=== PATIENT | male | born 1980 | race African-American/Black ===

== ENCOUNTER 2023-03-27 16:09 | Outpatient (REF) | payer MEDICAID, SELFPAY ==
[2023-03-27 18:20] LABS: Anion Gap 16 (12-20); Blood Urea Nitrogen 15 mg/dL (9-16); Calcium 9.6 mg/dL (8.4-10.2); Carbon Dioxide 25 mmol/L (22-29); Chloride 105 mmol/L (96-108); Cholesterol 234 mg/dL; Estimated Glomerular Filt Rate 48; Glucose Random 73 mg/dL (60-115); HDL Cholesterol 79 mg/dL; LDL Cholesterol Calculated 126 mg/dl; Potassium 4.6 mmol/L (3.3-5.1); Sodium 141 mmol/L (135-145); Triglycerides 146 mg/dL
[2023-03-27 18:37] LABS: Thyroid Stimulating Hormone 30.01 uIU/mL (0.32-4.0)
== END 2023-03-27 16:10 | disposition home or self-care (01) ==
LOC: HO.HHCL 16:09
PROVIDERS: Visit Provider Registered Nurse
DX: Z13.89 Encounter for screening for other disorder (principal)
CPT/HCPCS: 36415; 80048; 80061; 84443

== ENCOUNTER 2023-04-24 16:16 | Emergency (ER) | payer MEDICAID, SELFPAY ==
--- NOTE | 2023-04-24 | ECG_ITS ---
Test Reason : Dizziness Blood Pressure : / mmHG Vent. Rate : 103 BPM Atrial Rate : 103 BPM P-R Int : 180 ms QRS Dur : 092 ms QT Int : 350 ms P-R-T Axes : 056 123 039 degrees QTc Int : 458 ms Sinus tachycardia Right axis deviation Abnormal ECG When compared with ECG of 09-SEP-2005 17:37, Vent. rate has increased BY [address] no longer elevated in Anterior leads QT has lengthened Referred By: Generic ED Physician Electronically Signed By:ANCELMO BAILEY
[2023-04-24 16:20] VITALS: BP 135/96; BP 154/104; PULSE 106; PULSE 115; RESP 18; TEMP 36.7; O2SAT 97; O2SAT 99; BMI 26.8
--- NOTE | 2023-04-24 17:56 | ED_ITS ---
HPI - General Adult General Chief complaint: Dizziness Stated complaint: DIZZY,HAS NOT TAKEN BP MEDS PER EMS Time Seen by Provider: 04/24/23 16:51 Source: patient Mode of arrival: ambulatory Limitations: no limitations History of Present Illness HPI narrative: Palpitation, agitation, anxious all day. Just feeling a bad day. Patient states the palpitation lasted minutes. Onset (ago): minute(s) Related Data Allergies Allergy/AdvReac Type Severity Reaction Status Date / Time raisins Allergy Hives Uncoded 04/24/23 16:29 Review of Systems Review of Systems: Yes all other systems are reviewed and are negative [facility] Social History Social History Advance Directives: No Advance Directives Information Provided: Yes Physical Exam ED Vital Signs: Vital Signs - 24 hr 04/24/23 16:20 04/24/23 18:40 Temperature 98.1 F Pulse Rate 106 H 104 H Respiratory Rate 18 17 Blood Pressure 135/96 H 153/110 H Pulse Oximetry 99 100 Oxygen Delivery Method Room Air Room Air BMI result Body Mass Index 26.8 Const General: healthy appearing Nutritional Appearance: average body habitus Orientation/consciousness: oriented to person and patient oriented x3 Limitations: no limitations HENMT Head: Yes normal to inspection Ears: external ears normal General nose exam: Normal external nose present Mouth: Normal oral and palatal mucosa present and oropharynx normal Throat: Yes posterior oropharynx normal Eyes General: appearance normal, both eyes and all related structures Neck Neck: Yes normal visual inspection Chest Chest palpation & inspection: normal inspection of the chest Resp Auscultation: clear to auscultation bilaterally Cardio Other: slight tachycardia Jugular venous distension: no JVD Rate: regular rate Rhythm: regular rhythm Heart sounds: S1 normal heart sound present and S2 normal heart sound present GI Inspection: Yes normal to inspection Palpation (GI): Soft to palpation, nontender and No hepatosplenomegaly present Auscultation: normal bowel sounds General: Yes no CVA tenderness Back/Spine/Pelvis Back: no CVA tenderness Skin General skin exam: no rashes or lesions noted Neuro General: oriented to person and patient oriented x3 Cranial nerves: Yes CN's II-XII intact bilaterally Motor exam (neuro): 5/5 motor strength present throughout Extrem General: Yes normal to inspection Psych Appearance: grossly normal Course Reevaluation(s) Reevaluation #1: no evidence of cardiac arrythmia will dc home Time: 19:28 Medical Decision Making Differential Diagnosis Differential Diagnoses: The differential diagnosis associated with the presentation includes (tachycardia, hyper thyroidism, arrhythmia, cad) Admission/Observation Consideration of admission/observation: Escalation of care including admission/observation considered (upon arrival patient considered for admission) Lab Data MDM Lab Attestation statement: I reviewed the patient's lab results. (normal electrolytes, normal troponin) 04/24/23 18:09 04/24/23 18:09 Labs: Lab Results 04/24/23 04/24/23 04/24/23 Range/Units 18:09 18:09 18:09 WBC 5.6 (4.8-10.8) X10*3/uL RBC 4.60 (4.60-5.80) X10*6/uL Hgb 15.0 (14.0-18.0) g/dl Hct 45.1 (42.0-52.0) % MCV 98.0 (80.0-98.0) fL MCH 32.6 (27.0-33.0) pg MCHC 33.3 (31.0-36.0) g/dl RDW 14.0 (11.0-16.0) % Plt Count 246 (160-400) X10*3/uL MPV 8.7 L (9.4-12.4) fL Immature Gran % (Auto) 0.2 (0.0-0.4) % Neut % (Auto) 54.9 (45-73) % Lymph % (Auto) 31.5 (20-40) % Lander % (Auto) 10.0 (2-11) % Eos % (Auto) 2.7 (0-4) % Baso % (Auto) 0.7 (0-2) % Lymph # (Auto) 1.8 (1.2-4.9) X10*3/uL Lander # (Auto) 0.6 (0.1-1.2) X10*3/uL Eos # (Auto) 0.2 (0.0-0.4) X10*3/uL Baso # (Auto) 0.0 (0.0-0.2) X10*3/uL Abs Immat Gran (auto) 0.01 (0.00-0.03) X10*3/uL Absolute Neuts (auto) 3.1 (2.0-8.3) x10*3/uL Absolute Nucleated RBC 0.000 (0.0-0.012) X10*3/uL Nucleated RBC % (auto) 0.0 (0.0-0.2) /100WBC APTT 29.6 (26.0-36.4) SEC Sodium 139 (135-145) mmol/L Potassium 4.2 (3.3-5.1) mmol/L Chloride 106 (96-108) mmol/L Carbon Dioxide 26 (22-29) mmol/L Anion Gap 11 L (12-20) BUN 15 (9-16) mg/dL Creatinine 1.21 (0.5-1.4) mg/dL Estim Creat Clear Calc 97.1 Estimated GFR > 60 Random Glucose 94 (60-115) mg/dL Calcium 9.7 (8.4-10.2) mg/dL Total Bilirubin 0.5 (0.0-1.0) mg/dL Direct Bilirubin 0.2 (0.0-0.5) mg/dL AST 26 (5-37) U/L ALT 25 (0-40) U/L Alkaline Phosphatase 60 (39-117) U/L Troponin I High Sens (<3.5-35.0) ng/L Total Protein 7.6 (6.5-8.0) g/dL Albumin 4.4 (3.5-5.0) g/dL Lipase 27 (8-78) U/L TSH (0.32-4.0) uIU/mL Ethyl Alcohol < 10 mg/dL 04/24/23 04/24/23 Range/Units 18:09 18:09 WBC (4.8-10.8) X10*3/uL RBC (4.60-5.80) X10*6/uL Hgb (14.0-18.0) g/dl Hct (42.0-52.0) % MCV (80.0-98.0) fL MCH (27.0-33.0) pg MCHC (31.0-36.0) g/dl RDW (11.0-16.0) % Plt Count (160-400) X10*3/uL MPV (9.4-12.4) fL Immature Gran % (Auto) (0.0-0.4) % Neut % (Auto) (45-73) % Lymph % (Auto) (20-40) % Lander % (Auto) (2-11) % Eos % (Auto) (0-4) % Baso % (Auto) (0-2) % Lymph # (Auto) (1.2-4.9) X10*3/uL Lander # (Auto) (0.1-1.2) X10*3/uL Eos # (Auto) (0.0-0.4) X10*3/uL Baso # (Auto) (0.0-0.2) X10*3/uL Abs Immat Gran (auto) (0.00-0.03) X10*3/uL Absolute Neuts (auto) (2.0-8.3) x10*3/uL Absolute Nucleated RBC (0.0-0.012) X10*3/uL Nucleated RBC % (auto) (0.0-0.2) /100WBC APTT (26.0-36.4) SEC Sodium (135-145) mmol/L Potassium (3.3-5.1) mmol/L Chloride (96-108) mmol/L Carbon Dioxide (22-29) mmol/L Anion Gap (12-20) BUN (9-16) mg/dL Creatinine (0.5-1.4) mg/dL Estim Creat Clear Calc Estimated GFR Random Glucose (60-115) mg/dL Calcium (8.4-10.2) mg/dL Total Bilirubin (0.0-1.0) mg/dL Direct Bilirubin (0.0-0.5) mg/dL AST (5-37) U/L ALT (0-40) U/L Alkaline Phosphatase (39-117) U/L Troponin I High Sens 3.2 (<3.5-35.0) ng/L Total Protein (6.5-8.0) g/dL Albumin (3.5-5.0) g/dL Lipase (8-78) U/L TSH 8.78 H (0.32-4.0) uIU/mL Ethyl Alcohol mg/dL Independent Interpretation I performed an independent interpretation of an: EKG (sinus tachycardia rate 100, no st or twave changes) Independent Historian Clinical information obtained from an independent historian. History obtained from or confirmed by: EMS Chronic Conditions Patient?s care impacted by: Other (hypothyroidism) Discharge Plan Discharge Clinical Impression: Heart palpitations, Tachycardia Patient Disposition: Home, Self-Care Instructions: Heart Palpitations (ED), Atrial Tachycardia (ED) Referrals: [place] [Primary Care Provider] - 5 days
[2023-04-24 18:13] LABS: MANUAL DIFF FLAG NO
[2023-04-24 18:22] LABS: Partial Thromboplastin Time 29.6 SEC (26.0-36.4)
[2023-04-24 18:23] LABS: Basophils Percent Auto 0.7 % (0-2); Eosinophils Absolute Auto 0.2 X10*3/uL (0.0-0.4); Eosinophils Percent Auto 2.7 % (0-4); Hematocrit 45.1 % (42.0-52.0); Imm Gran Abs Auto 0.01 X10*3/uL (0.00-0.03); Imm Gran Pct Auto 0.2 % (0.0-0.4); Lymphocytes Absolute Auto 1.8 X10*3/uL (1.2-4.9); Lymphocytes Percent Auto 31.5 % (20-40); Mean Corpuscular HGB Conc 33.3 g/dl (31.0-36.0); Mean Corpuscular Hemoglobin 32.6 pg (27.0-33.0); Mean Platelet Volume 8.7 fL (9.4-12.4); Monocytes Absolute Auto 0.6 X10*3/uL (0.1-1.2); Neutrophils Absolute Auto 3.1 x10*3/uL (2.0-8.3); Neutrophils Percent Auto 54.9 % (45-73); Platelet Count 246 X10*3/uL (160-400); White Blood Count 5.6 X10*3/uL (4.8-10.8)
[2023-04-24 18:40] VITALS: BP 153/110; PULSE 104; RESP 17; O2SAT 100
[2023-04-24 18:46] LABS: Alanine Aminotransferase 25 U/L (0-40); Albumin Level 4.4 g/dL (3.5-5.0); Alkaline Phosphatase 60 U/L (39-117); Anion Gap 11 (12-20); Aspartate Amino Transferase 26 U/L (5-37); Bilirubin Direct 0.2 mg/dL (0.0-0.5); Bilirubin Total 0.5 mg/dL (0.0-1.0); Blood Urea Nitrogen 15 mg/dL (9-16); Calcium 9.7 mg/dL (8.4-10.2); Carbon Dioxide 26 mmol/L (22-29); Chloride 106 mmol/L (96-108); Creatinine Clr Calc Pharmacy 97.1; Estimated Glomerular Filt Rate > 60; Ethanol < 10 mg/dL; Glucose Random 94 mg/dL (60-115); Lipase 27 U/L (8-78); Potassium 4.2 mmol/L (3.3-5.1); Sodium 139 mmol/L (135-145); Total Protein 7.6 g/dL (6.5-8.0)
[2023-04-24 18:52] LABS: Troponin-I High Sensitivity 3.2 ng/L (<3.5-35.0)
[2023-04-24 19:06] LABS: TSH reflex Free T4 8.78 uIU/mL (0.32-4.0)
[2023-04-24 19:45] LABS: Free T4 (Free Thyroxine) 0.77 ng/dL (0.71-1.85)
== END 2023-04-24 19:49 | disposition home or self-care (01) ==
PROVIDERS: Emergency Provider Emergency Medicine
DX: R42 Dizziness and giddiness (principal); R00.0 Tachycardia, unspecified; R00.2 Palpitations; Z79.899 Other long term (current) drug therapy
CPT/HCPCS: 36415; 80048; 80076; 80307; 83690; 84439; 84443; 84484; 85025; 85730; 93005; 99283; 99284

== ENCOUNTER 2023-07-02 11:13 | Outpatient (REF) | payer MEDICAID, SELFPAY ==
[2023-07-02 14:01] LABS: Thyroid Stimulating Hormone 25.57 uIU/mL (0.32-4.0)
== END 2023-07-02 11:14 | disposition home or self-care (01) ==
LOC: HO.HHCL 11:13
PROVIDERS: Visit Provider Registered Nurse
DX: E03.9 Hypothyroidism, unspecified (principal)
CPT/HCPCS: 36415; 84443

== ENCOUNTER 2023-07-28 15:34 | Emergency (ER) | payer MEDICAID, SELFPAY ==
[2023-07-28 15:56] VITALS: BP 156/112; PULSE 99; RESP 18; TEMP 36.6; O2SAT 100; BMI 28.0
--- NOTE | 2023-07-28 15:56 | ED_ITS ---
HPI - URI/Sore Throat General Chief Complaint: Upper Respiratory Symptoms Stated Complaint: nasal congestion, dryness, redness Time Seen by Provider: 07/28/23 15:58 Source: patient Mode of arrival: ambulatory Limitations: no limitations History of Present Illness HPI Narrative: Patient is a 43-year-old male who presents emergency department for evaluation of nasal congestion and skin irritation to the nose. Reports symptoms x1 week, frequently wanting the nose. Reports scabbing/dryness of the skin that he is frequently feeling full and then it is scabbing back over. Has discomfort to this area with redness, occasionally has small amount of thin yellow drainage. Pain over the bilateral cheek bones. Denies headache, neck pain, dizziness, lightheadedness, cough, sore throat, shortness of breath. Related Data Previous Rx's Medication Instructions Recorded amoxicillin 875 mg-potassium 1 tab PO Q12H #14 tabs 07/28/23 clavulanate 125 mg tablet mupirocin 2 % topical ointment 1 appl topical BID #15 grams 07/28/23 Allergies Allergy/AdvReac Type Severity Reaction Status Date / Time raisins Allergy Hives Uncoded 07/28/23 15:56 Review of Systems Review of Systems: Yes all other systems are reviewed and are negative PMFSH Past Medical History Attestation statement: The following information was validated with the patient. Source: old records reviewed Social History Social History Alcohol intake: current Alcohol intake frequency: 0-2 drinks per day Alcohol type: beer and hard liquor Physical Exam Vital Signs: Vital Signs: Last Vital Signs Temp 97.8 F 07/28/23 15:56 Pulse 99 07/28/23 15:56 Resp 18 07/28/23 15:56 BP 156/112 H 07/28/23 15:56 Pulse Ox 100 07/28/23 15:56 O2 Del Method Room Air 07/28/23 15:56 BMI result Body Mass Index 28.0 Appearance: Alert.?Oriented to person, place and time. No acute distress.?Normal affect. Eyes: Pupils equal, round and reactive to light.? ENT: TM normal bilaterally. Pharynx normal.? Nares patent bilaterally. No septal hematoma. Tip of the nose with mild excoriation of the skin. Bilateral maxillary tenderness upon palpation ? Neck: Normal inspection.? Neck supple.??No cervical adenopathy CVS: Heart sounds normal. Normal heart rate and rhythm.? Pulses normal.?? Respiratory: No respiratory distress.? Lung sounds clear to auscultation bilaterally?? Abdomen: Soft and non-tender. Normoactive bowel sounds. Skin: Skin warm and dry.? Normal skin color.? ? Extremities: No lower extremity edema.? Neuro: Moves all extremities spontaneously. Sensation intact bilaterally. No motor deficits. Ambulates with normal steady gait. Medical Decision Making Medical Decision Making [facility] Narrative: Patient is a 43-year-old male presenting for evaluation of nasal congestion and sinus tenderness. Declines viral testing; COVID-19/influenza/RSV. Overall he is well-appearing At this time history and physical exam not consistent with ACS/PE/pneumonia. Mild excoriation of the skin at the tip of the nose, does not appear to be acute cellulitis, no abscess, currently no crusting or dried skin to suggest impetigo based on reported history will send prescription for mupirocin to the pharmacy in addition to Augmentin to cover sinusitis. Overall he is Well-appearing, nontoxic, afebrile, no tachycardia or tachypnea/hypoxia. 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 Currently he is asymptomatic, and denies any known history of hypertension. Upon re-evaluation to be 148/96. Speaking clear full sentences, ambulatory with steady gait. Discussed conservative treatment including rest, hydration, Tylenol/ibuprofen as needed for fever and body aches, saline nasal spray, humidifier, Advised to follow-up with primary care provider as needed, discussed reasons to return back to the emergency department. All questions were answered. Patient discharged home in stable condition. Differential Diagnosis Differential Diagnoses: The differential diagnosis associated with the presentation includes (As noted above) External Record Review External record reviewed: Outpatient record Tests considered The following testing was considered but not selected: As noted above Prescription Management I considered prescription management with: Antibiotic Discharge Plan Discharge Clinical Impression: Sinusitis Qualifiers: Sinusitis location: maxillary Chronicity: acute Recurrence: non-recurrent Qualified Code(s): J01.00 - Acute maxillary sinusitis, unspecified Patient Disposition: Home, Self-Care Instructions: Sinusitis (ED) Prescriptions: New amoxicillin-pot clavulanate 875-125 mg tablet 1 tab PO Q12H Qty: 14 0RF mupirocin 2 % ointment 1 appl topical BID Qty: 15 0RF Referrals: Vanessa Lawson, [employer] [Primary Care Provider] -
[2023-07-28 16:00] VITALS: BP 142/103
== END 2023-07-28 16:55 | disposition home or self-care (01) ==
PROVIDERS: Emergency Provider Emergency Medicine; PCP Registered Nurse
DX: J01.00 Acute maxillary sinusitis, unspecified (principal)
CPT/HCPCS: 99282; 99283

== ENCOUNTER 2023-10-16 08:37 | Outpatient (REF) | payer MEDICAID, SELFPAY ==
[2023-10-16 12:16] LABS: Anion Gap 11 (12-20); Blood Urea Nitrogen 25 mg/dL (9-16); Calcium 9.6 mg/dL (8.4-10.2); Carbon Dioxide 25 mmol/L (22-29); Chloride 108 mmol/L (96-108); Cholesterol 158 mg/dL (<200); Estimated Glomerular Filt Rate > 60; Glucose Random 110 mg/dL (60-115); HDL Cholesterol 47 mg/dL (>40); LDL Cholesterol Calculated 97 mg/dL (<100); Potassium 5.1 mmol/L (3.3-5.1); Sodium 139 mmol/L (135-145); Triglycerides 71 mg/dL (<150)
[2023-10-16 12:26] LABS: Thyroid Stimulating Hormone 15.65 uIU/mL (0.32-4.0)
== END 2023-10-16 08:38 | disposition home or self-care (01) ==
LOC: HO.HHCL 08:37
PROVIDERS: Visit Provider Registered Nurse
DX: I10 Essential (primary) hypertension (principal); E03.9 Hypothyroidism, unspecified
CPT/HCPCS: 36415; 80048; 80061; 84443

== ENCOUNTER 2024-08-31 16:20 | Emergency (ER) | payer MEDICAID, SELFPAY ==
[2024-08-31 17:43] VITALS: BP 126/95; PULSE 96; RESP 18; TEMP 36.8; O2SAT 99; BMI 28.5
--- NOTE | 2024-08-31 17:53 | ED_ITS ---
HPI - General Adult General Chief complaint: Skin/Abscess/Foreign Body Stated complaint: ? hernia Time Seen by Provider: 08/31/24 19:32 Related Data Previous Rx's ?Medication ?Instructions ?Recorded amoxicillin 875 mg-potassium 1 tab PO Q12H #14 tabs 07/28/23 clavulanate 125 mg tablet mupirocin 2 % topical ointment 1 appl topical BID #15 grams 07/28/23 docusate sodium 100 mg capsule 100 mg PO BID #20 caps 08/31/24 (Colace) hydrocortisone 1 % topical cream 1 appl topical QID PRN skin 08/31/24 (Preparation H Hydrocortisone) irritation #28.4 grams Allergies Allergy/AdvReac Type Severity Reaction Status Date / Time raisins Allergy Hives Uncoded 08/31/24 17:45 [facility] Social History Social History Alcohol intake: current Alcohol intake frequency: 0-2 drinks per day Alcohol type: beer and hard liquor Advance Directives: No Advance Directives Information Provided: No Physical Exam ED Vital Signs: Vital Signs - 24 hr 08/31/24 17:43 08/31/24 18:52 08/31/24 19:57 Temperature 98.3 F 98.1 F 97.8 F Pulse Rate 96 89 85 Respiratory Rate 18 16 16 Blood Pressure 126/95 H 144/105 H 134/94 H Pulse Oximetry 99 99 98 Oxygen Delivery Method Room Air Room Air Room Air BMI result Body Mass Index 28.5 Course Course Course Narrative: RME: 44-year-old male presents to ED for feeling painful lump buttock Xiao rectum area after heavy lifting. Patient denies any blood in his stool or belly pain. Patient to be evaluated [facility] Discharge Plan Discharge Clinical Impression: Acute hemorrhoid Patient Disposition: Home, Self-Care Instructions: Hemorrhoids (ED), Sitz Bath (DC) Prescriptions: New hydrocortisone [Preparation H Hydrocortisone] 1 % cream 1 appl topical QID PRN (Reason: skin irritation) Qty: 28.4 0RF docusate sodium [Colace] 100 mg capsule 100 mg PO BID Qty: 20 0RF No Action amoxicillin-pot clavulanate 875-125 mg tablet 1 tab PO Q12H Qty: 14 0RF mupirocin 2 % ointment 1 appl topical BID Qty: 15 0RF Referrals: Vernon Way MD [Physician] - 09/02/24 Stand Alone Forms: Work/School Release Print Language: Khmer
[2024-08-31 18:52] VITALS: BP 144/105; PULSE 89; RESP 16; TEMP 36.7; O2SAT 99
[2024-08-31 19:57] VITALS: BP 134/94; PULSE 85; RESP 16; TEMP 36.6; O2SAT 98
--- NOTE | 2024-08-31 20:01 | ED_ITS ---
HPI - Skin/Abscess/Foreign Bdy General Chief complaint: Skin/Abscess/Foreign Body Stated complaint: ? hernia Time Seen by Provider: 08/31/24 19:32 History of Present Illness HPI narrative: Patient is a 44-year-old male was lifting heavy objects when he noted a lump in his rectum having some pain there. There is no blood. Patient is able to defecate without any problems there is no nausea no vomiting no systemic complaints. Has no history of fever chills. No chest pain or shortness breath no abdominal pain or sudden in his family. Patient is from home. 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 Related Data Previous Rx's ?Medication ?Instructions ?Recorded amoxicillin 875 mg-potassium 1 tab PO Q12H #14 tabs 07/28/23 clavulanate 125 mg tablet mupirocin 2 % topical ointment 1 appl topical BID #15 grams 07/28/23 docusate sodium 100 mg capsule 100 mg PO BID #20 caps 08/31/24 (Colace) hydrocortisone 1 % topical cream 1 appl topical QID PRN skin 08/31/24 (Preparation H Hydrocortisone) irritation #28.4 grams Allergies Allergy/AdvReac Type Severity Reaction Status Date / Time raisins Allergy Hives Uncoded 08/31/24 17:45 Review of Systems Review of Systems: Positive protruding mass from his rectum with pain Yes all other systems are reviewed and are negative COUNTS INCLUDE 234 BEDS AT THE [facility] Past Medical History Attestation statement: The following information was validated with the patient. Social History Social History Alcohol intake: current Alcohol intake frequency: 0-2 drinks per day Alcohol type: beer and hard liquor Advance Directives: No Advance Directives Information Provided: No Physical Exam Vital Signs: Vital Signs: Last Vital Signs Temp 97.8 F 08/31/24 19:57 Pulse 85 08/31/24 19:57 Resp 16 08/31/24 19:57 BP 134/94 H 08/31/24 19:57 Pulse Ox 98 08/31/24 19:57 O2 Del Method Room Air 08/31/24 19:57 BMI result Body Mass Index 28.5 Appearance: Alert. Oriented X3. No acute distress. Eyes: Pupils equal, round and reactive to light. ENT: Pharynx normal. Neck: Normal inspection. Neck supple. No lymph nodes noted. No crepitus CVS: Normal heart rate and rhythm. Pulses normal. Normal S1 and S2 Respiratory: No respiratory distress. Breath sounds normal. No Wheezing. No rales Abdomen: Soft and nontender. No rigidity. No distention. good BS x4 Rectal exam done with tech Sarahy present. There is a external hemorrhoid that was noted at approximately the 4 o'clock position. Skin: Skin warm and dry. Normal skin color. Normal skin turgor. Extremities: No lower extremity edema. Neurovascular intact to all extremities. No Lacerations. No Rash Neuro: Oriented X 3. No motor deficit. No sensory deficit. Moving all extermities. No slurred speech Medical Decision Making Medical Decision Making MDM Narrative: Patient well-appearing positive external hemorrhoid will give preparation H and also Sitz baths. Refer patient to surgery for further evaluation Differential Diagnosis Hemorrhoid versus mass versus fissure versus prolapse Admission/Observation Consideration of admission/observation: Escalation of care including admission/observation considered Discharge Plan Discharge Clinical Impression: Acute hemorrhoid Patient Disposition: Home, Self-Care Instructions: Hemorrhoids (ED), Sitz Bath (DC) Prescriptions: New hydrocortisone [Preparation H Hydrocortisone] 1 % cream 1 appl topical QID PRN (Reason: skin irritation) Qty: 28.4 0RF docusate sodium [Colace] 100 mg capsule 100 mg PO BID Qty: 20 0RF No Action amoxicillin-pot clavulanate 875-125 mg tablet 1 tab PO Q12H Qty: 14 0RF mupirocin 2 % ointment 1 appl topical BID Qty: 15 0RF Referrals: Vernon Way MD [Physician] - 09/02/24 Stand Alone Forms: Work/School Release Print Language: Cook Islander
[2024-08-31 20:09] VITALS: BP 134/94; PULSE 85; RESP 16; TEMP 36.6; O2SAT 98
== END 2024-08-31 20:09 | disposition home or self-care (01) ==
PROVIDERS: Emergency Provider Emergency Medicine Emergency Medical Services; PCP Registered Nurse
DX: K64.9 Unspecified hemorrhoids (principal)
CPT/HCPCS: 99283; 99284

== ENCOUNTER 2024-09-03 09:56 | Outpatient (AMB) | payer MEDICAID, SELFPAY ==
[2024-09-03 10:09] VITALS: BMI 28.5
--- NOTE | 2024-09-03 10:09 | A.OFFVIS_ITS ---
Vital Signs 09/03/24 10:09 Height 6 ft 5 in Weight 240 lb 4.862 oz BMI 28.5 Intake Visit Reasons: Acute hemorrhoid Intake Note: This patient presents for [facility] emergency department follow-up for acute hemorrhoid. Pt c/o; reports he no longer feels the sharp pain, reports no rectal bleeding, reports he has been taking Colace as directed. [employer] Director Required: No Accompanied by: Self / Same As Patient Allergies trail mix Allergy (Severe, Uncoded 09/03/24 10:15) Hives raisins Allergy (Uncoded 09/03/24 10:15) Hives Medication List - Last Reconciled 09/03/24 by Luis Antonio Cooper MD amlodipine 10 mg PO QAM amoxicillin-pot clavulanate 875-125 mg 1 tab PO Q12H docusate sodium (Colace) 100 mg PO BID hydrocortisone 1% (Preparation H Hydrocortisone) 1 appl topical QID PRN levothyroxine 12.5 mcg PO QAM mupirocin 2% 1 appl topical BID rosuvastatin 20 mg PO DAILY HPI HPI Acute hemorrhoid: Details: 44-year-old male referred for hemorrhoids. He says he went to the ER 3 days ago because of what he felt was a large hemorrhoid. He said he had some pain on the area 1 day prior to that. He denies any bleeding . He was referred to me after being seen in the ER. He said he no longer has significant pain. He says he just feels the hemorrhoid outside his anus. [facility] Medical History (Updated 09/03/24 @ 10:27 by Luis Antonio Cooper MD) Thrombosed external hemorrhoid Surgical History No pertinent past surgical history Family History Other Family history unknown Social History Alcohol intake: current Alcohol intake frequency: 0-2 drinks per day Alcohol type: beer and hard liquor Review of Systems Const Denies chills and Denies fever(s) Card Denies chest pain, Denies dyspnea and Denies dyspnea on exertion Resp Denies cough, Denies dyspnea and Denies dyspnea on exertion GI Denies hematochezia and Denies change in bowel habits Denies hematuria and Denies difficulty urinating Musc Denies back pain and Denies limited range of motion Neuro Denies focal weakness and Denies convulsions Psych Denies depression and Denies mood swings Physical Exam Vital Signs: BMI result Body Mass Index 28.5 Const General: comfortable and no acute distress Orientation/consciousness: patient oriented x3 Neck Neck: Yes no lymphadenopathy Resp Auscultation: clear to auscultation bilaterally Cardio Rhythm: regular rhythm GI Other: Rectal exam shows a large thrombosed hemorrhoid about 2 cm in the right anal verge, nontender at this time Palpation (GI): Soft to palpation, nontender and no guarding Neuro General: patient oriented x3 Office Procedures Anoscopy He was in chris-knife position. The anoscope was gently inserted. A full examination of the anal canal was done. He did have small internal hemorrhoids as well. There were no obvious lesions or any fissure or ulceration. There was no bleeding. The large thrombosed external hemorrhoid was noted on the right. [id number] Assessment & Plan Assessment & Plan (1) Thrombosed external hemorrhoid: Code(s): K64.5 - Perianal venous thrombosis Category: Medical Plan: He does not have anymore pain or tenderness. I explained to him that we do not need to any surgical intervention for now. I told him to do hot Sitz baths or warm soaks to the area as this will help with resorption of the thrombus I gave him my card and I told him that if continues to have problems down the line with the hemorrhoid, he should come back to the office to be re-evaluated I advised him on avoiding straining and constipation. Coding Level of Care Code New Pt Level 3 (26176) Diagnoses Thrombosed external hemorrhoid K64.5 CPT Codes Details - CPT: 10870-Ccjnosov ([id number])
== END 2024-09-03 10:23 | disposition home or self-care (01) ==
PROVIDERS: PCP Registered Nurse; Visit Provider Surgery
DX: K64.5 Perianal venous thrombosis (principal)
CPT/HCPCS: 46600; 99203

== ENCOUNTER → 2024-09-03 09:56 | Outpatient (BNVA) | payer MEDICAID, SELFPAY | PROVIDERS: PCP Registered Nurse; Visit Provider Surgery | DX: K64.5 Perianal venous thrombosis (principal) | CPT/HCPCS: 46600; 99202 ==